=== PATIENT | male | born 1955 ===

== ENCOUNTER → 2018-05-16 | Outpatient (CLI) | payer BC ==
[~2018-05-16] VITALS: Ht 175.3 cm; Wt 102.7 kg
[~2018-05-16] MED LIST: ASPIR 8181 MG PO; LOSARTAN-HCTZ1 EAC2 PO; MATZIM LA180 MG PO; MEDROLDOSEPACK PO; MOBIC15 MG PO; SILDENAFIL20 MG PO; TRAMADOL 50 MG50 MG PO; VALACYCLOVIR500 MG PO
--- NOTE | ~2018-05-16 | HPC ---
[facility] [place] [address] [place] [address] PAIN MANAGEMENT CONSULTATION Name: FABIEN JUAREZ Room #: REG MAHENDRA CortesJeanine#: [id number] Admission: 05/16/18 Attend Phys: Nando Schmitz MD Discharge: Date of : 59 Report #: [id number] THIS REPORT FOR: //name// CC: Thai Schmitz DATE OF SERVICE: 05/16/2018 CHIEF COMPLAINT: Back pain and bilateral leg pain. HISTORY OF PRESENT ILLNESS: The patient is a 62-year-old man who has been referred to the pain clinic for evaluation of back and hip pain. He has noted pain since 01/2018. It involves his low back with pain that radiates down into his legs. Notes that the pain is worse with prolonged standing or sitting. Notes that the pain sometimes improves when he lies down. He describes it as intermittent burning and rates it as a 7/10 at this juncture. He has tried nonsteroidal anti-inflammatory medications. He also has used diclofenac and Naprosyn. He previously had a lumbar laminectomy in 2015. At this juncture, he would like to stay away from surgery. He did have some old Vicodin, which he tried in the past, but did not note any significant improvement. He has come to the pain clinic for evaluation. Denies any new bowel or bladder dysfunction. ALLERGIES: LISINOPRIL CAUSES COUGHING. MEDICATIONS: Aspirin 81 mg, losartan/hydrochlorothiazide 100/12.5, diltiazem 180 mg, meloxicam 15 mg, and Ultram 50 mg. PAST MEDICAL HISTORY: Colon adenoma in 2010, hypertension, benign prostatic hypertrophy, seasonal rhinitis, erectile dysfunction, and herpes simplex. PAST SURGICAL HISTORY: Back surgery in 2014, circumcision in 1986, fracture of the jaw in 1975, and L3-L4 right-sided laminectomy with ____ laminotomy, decompression for lumbar spinal stenosis in 05/2014. 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 REVIEW OF SYSTEMS: Generally good health, wears glasses, change in bowel habits, constipation, and frequent urination. LABORATORY DATA: No laboratory values are available at the time of our interview. PAIN CLINIC ASSESSMENT AND PQRS: 1. The patient is not being treated for rheumatoid arthritis. The patient has some osteoarthritic changes in the low back [place] [address] PAIN MANAGEMENT CONSULTATION Name: FABIEN JUAREZ Room #: REG MAHENDRA Inez#: [id number] Admission: 05/16/18 Attend Phys: Nando Schmitz MD Discharge: Date of : 59 Report #: [id number] 2. Height 5 feet 7 inches, weight 223 pounds, BMI is 39.9. 3. Vital signs: Blood pressure 152/98, pulse 71, respiratory rate 15, and room air saturation 99%. 4. Pain intensity, 12/03. 5. Fall risk. The patient has not fallen in the last 3 months. 6. Blood thinner. The patient is not on a blood thinning medication. 7. Hypertension. The patient is being treated for hypertension. 8. Opioids greater than 6 weeks. The patient is not on the opioid regimen. 9. Risk assessment tool, low for opioid use. 10. Functional assessment tool, . 11. Recreational drug use. The patient denies use of recreational drugs. 12. Tobacco: The patient is a former smoker. 13. Alcohol. The patient drinks alcoholic beverages about 3 times weekly. PHYSICAL EXAMINATION: GENERAL: The patient is a well-developed, well-nourished white male. Appears his stated age. He is alert and oriented x 3. Affect is appropriate. Speech is fluent. The patient is walking with use of a cane. HEENT: Normocephalic, atraumatic. Extraocular eye muscles intact. Sclerae nonicteric. Mucous membranes are moist. NECK: Without adenopathy or JVD. HEART: Regular rate. LUNGS: Clear to auscultation without rhonchi or rales. ABDOMEN: Nontender. Bowel sounds present. EXTREMITIES: Upper extremity muscle strength judged to be 5/5 for the major muscle groups in the upper extremity. Forward bending to about 45 degrees and the patient notes increased pain and discomfort in the low back and hip area. Left and right lateral bending, left and right lateral rotation cause some increased discomfort in the hip area. The patient has negative Jam sign. Negative straight leg raise. Palpation in the left and right hip area cause increased pain in the area of the left and right bursa. The patient is having difficulty ambulating. He has not been able to go to work for the last 4 days. ASSESSMENT: 1. Greater trochanteric bursitis involving the right buttock, left and right trochanteric areas. 2. Colon adenoma in 2010. 3. Hypertension. 4. Benign prostatic hypertrophy. 5. Seasonal rhinitis. 6. Erectile dysfunction. 7. Herpes simplex. RECOMMENDATIONS: We discussed treatment options with the patient. A model was used to indicate the area of probable pathology. Risks and benefits of injections of the bursa were discussed. At this juncture, the patient would [facility] [address] [place] [address] PAIN MANAGEMENT CONSULTATION Name: FABIEN JUAREZ Room #: REG CLMarcos Wiley#: [id number] Admission: 05/16/18 Attend Phys: Nando Schmitz MD Discharge: Date of : 59 Report #: [id number] like to try a conservative approach. We will have the patient try a Medrol Dosepak and note its efficacy. Should his pain continue to be problematic, he will return at which time we would then consider greater trochanteric injections. Risks and benefits of these were discussed with the patient. He will try the Medrol Dosepak and continue with nonsteroidal anti-inflammatory medications and ____ in conjunction with this medication and note its efficacy. We would like to thank you for letting us participate in his care. We hope he continues to improve. By: [id number] Nando Schmitz MD /nt
[2018-05-16 13:24] VITALS: BP 164/86
== END ==
LOC: PAIN 11:01
DX: I10 Essential (primary) hypertension (principal); J30.2 Other seasonal allergic rhinitis; N52.9 Male erectile dysfunction, unspecified; N40.0 Benign prostatic hyperplasia without lower urinary tract symptoms; B00.9 Herpesviral infection, unspecified; M70.61 Trochanteric bursitis, right hip

== ENCOUNTER → 2018-05-23 | Outpatient (CLI) | payer BC ==
[~2018-05-23] VITALS: Ht 175.3 cm; Wt 102.6 kg
--- NOTE | ~2018-05-23 | HPC ---
[facility] [place] [address] PAIN MANAGEMENT CONSULTATION Name: FABIEN JUAREZ Room #: REG MAHENDRA CortesJeanine#: [id number] Admission: 05/23/18 Attend Phys: Nando Schmitz MD Discharge: Date of : 59 Report #: [id number] THIS REPORT FOR: //name// CC: Thai Schmitz DATE OF SERVICE: 05/23/2018 CHIEF COMPLAINT: Here for an injection in the hip area. HISTORY: The patient is a 62-year-old gentleman who has been seen in the pain clinic because of back pain as well as hip pain. He has been having pain and discomfort since about 01/2018. He has been experiencing pain that has been radiating down into his legs. Notes that the pain is worse with prolonged standing or sitting. Notes that there is pain and discomfort, which he describes as burning in the right hip area. He has tried nonsteroidal anti-inflammatory medications. He has had a lumbar laminectomy in 2014. ALLERGIES: LISINOPRIL CAUSES COUGHING. MEDICATIONS: Aspirin 81 mg, losartan/hydrochlorothiazide 100/12.5, diltiazem 180 mg, Meloxicam 15 mg, Ultram 50 mg. PAIN CLINIC ASSESSMENT/PQRS: 1. The patient has not been treated for rheumatoid arthritis. The patient has some arthritic changes in the low back area since his surgery. 2. Height 5 feet 7 inches, weight 226 pounds, BMI is 33.4. 3. Vital signs: Blood pressure 156/97, pulse 70, respiratory rate 16, room air saturation 99%. 4. Pain intensity 01/03. 5. Fall risk. The patient has not fallen in the last 3 months. 6. Blood thinner: The patient is not on a blood thinning medication. 7. Hypertension: The patient is being treated for hypertension. 8. Opioids: The patient has not received opioid medication for the last 6 weeks. 9. Risk assessment tool, low for opioid use. 10. Functional assessment tool . 11. Recreational drug use: The patient denies use of recreational drugs. 12. Tobacco: The patient has never smoked. 13. Alcohol: The patient occasionally drinks alcoholic beverages. PHYSICAL EXAMINATION: GENERAL: The patient is a well-developed, well-nourished black male. He appears his stated age. He is alert and oriented x 3. Affect is appropriate. Speech is fluent. HEENT: Normocephalic, atraumatic. Extraocular eye muscles [place] [address] PAIN MANAGEMENT CONSULTATION Name: FABIEN JUAREZ Room #: REG [facility]#: [id number] Admission: 05/23/18 Attend Phys: Nando Schmitz MD Discharge: Date of : 59 Report #: [id number] nonicteric. EXTREMITIES: The patient continues to walk with use of a cane. Upper extremity muscle strength is judged to be 5/5 for the major muscle groups. The patient has pain and discomfort in the right greater trochanteric area. Palpation in this area does reproduce the patient's pain and discomfort. PROCEDURE NOTE: The patient's right greater trochanteric area was sterilely prepped with chlorhexidine solution and allowed to dry. It was then again prepped with another chlorhexidine solution and allowed to dry. The area of the right greater trochanteric bursa was palpated. The patient states that this did reproduce a component of his pain and discomfort. Aspiration was negative. A total of 10 mL of 0.5% bupivacaine and 80 mg Depo-Medrol was injected. The patient tolerated the procedure well. He will follow up in the future as needed. We would like to thank you for letting us participate in his care. We hope he continues to improve. By: [id number] Nando Schmitz MD /MENDOZA
[2018-05-23 10:19] VITALS: BP 156/97
--- NOTE | 2018-05-23 10:28 | NUR ---
Pain Clinic Assessment: 1. History of Osteoarthritis: History of Rheumatoid Arthritis: 2. Height: 5 ft. 9 in. 175.3 cm. Weight: 226.2 lb. oz. 102.604 kg. Patient's BMI: 33.4 3. Vital Signs: BP: 156/97 Pulse: 70 Resp: 16 Temp: 02 Sat: 99 ECG Mon: 4. Pain Intensity: 8 5. Fall Risk: Dizziness: N Needs help standing or walking: N Fallen in the last 3 months: N Fall risk comments: 6. Patient on Blood Thinner: None 7. History of Hypertension: Y 8. Opioid Therapy greater than 6 weeks: N Opiate Contract Signed: 9. Risk Assessment Tool Provided: LOW 10. Functional Assessment Tool: 11. Recreational Drug Use: Never Drug Type: Tobacco Use: Never Smoker Tobacco Type: Amount or Packs/day: How Many Years: Alcohol Use: Yes Frequency: Quant:
== END | disposition home or self-care (01) ==
LOC: PAIN 08:06
DX: M70.61 Trochanteric bursitis, right hip (principal); G89.29 Other chronic pain; Z88.8 Allergy status to other drugs, medicaments and biological substances; Z79.82 Long term (current) use of aspirin; Z79.899 Other long term (current) drug therapy; Z98.890 Other specified postprocedural states

== ENCOUNTER → 2018-07-02 | Outpatient (CLI) | payer BC ==
[~2018-07-02] VITALS: Ht 175.3 cm; Wt 102.4 kg
[~2018-07-02] MED LIST changes: +NEURONTIN 300300 M1 PO; +NORCO 5-325 TA1 EACH PO; +OXYCODONE-ACET1 EACH PO
[2018-07-02 10:28] VITALS: BP 173/90
--- NOTE | 2018-07-02 10:54 | NUR ---
Pain Clinic Assessment: 1. History of Osteoarthritis: History of Rheumatoid Arthritis: 2. Height: 5 ft. 9 in. 175.3 cm. Weight: 225.8 lb. oz. 102.422 kg. Patient's BMI: 33.3 3. Vital Signs: BP: 173/90 Pulse: 70 Resp: 18 Temp: 02 Sat: 97 ECG Mon: 4. Pain Intensity: 8 5. Fall Risk: Dizziness: N Needs help standing or walking: Y Fallen in the last 3 months: N Fall risk comments: 6. Patient on Blood Thinner: None 7. History of Hypertension: Y 8. Opioid Therapy greater than 6 weeks: N Opiate Contract Signed: 9. Risk Assessment Tool Provided: LOW 10. Functional Assessment Tool: 11. Recreational Drug Use: Never Drug Type: Tobacco Use: Never Smoker Tobacco Type: Amount or Packs/day: How Many Years: Alcohol Use: No Frequency: Quant:
--- NOTE | 2018-07-04 16:49 | HPC ---
[facility] [place] [address] [place] [address] PAIN MANAGEMENT CONSULTATION Name: FABIEN JUAREZ Room #: REG MAHENDRA CallejasJeanineKerriJeanine#: [id number] Admission: 07/02/18 Attend Phys: Nando Schmitz MD Discharge: Date of : 59 Report #: [id number] THIS REPORT FOR: //name// CC: Thia Schmitz DATE OF SERVICE: 07/02/2018 CHIEF COMPLAINT: Still having pain in my low back and pain is going down into my right leg and in the back. FOLLOWUP HISTORY: The patient is a 62-year-old gentleman who has been seen in the Pain Clinic because of pain in the low back area. He has been having problems since 01/2018. He is experiencing pain that is radiating down into his right leg. Walks with use of a cane. Rates his pain as 8/10 at this juncture. Did undergo an injection in the right greater trochanteric area. Still feels that the pain is problematic. He is not having as much pain in the trochanteric area, but is having pain that is radiating down into the posterior portion of his leg in the L5-S1 dermatomal distribution. He would like to undergo an injection in this area today. The patient is concerned that his family medical leave options are beginning to run out. MEDICATIONS: LISINOPRIL, CAUSED SOME COUGHING. MEDICATIONS: Aspirin 81 mg, losartan/hydrochlorothiazide, 100/12.5, diltiazem 180 mg, meloxicam 15 mg, Ultram 50 mg. PAIN CLINIC ASSESSMENT/PQRS: 1. The patient has not been treated for rheumatoid arthritis. The patient does have some arthritic changes in his lower portion of his back since he has had surgery in the low back area. 2. Height 5 feet 9 inches, weight 225 pounds, BMI 33.3. 3. Vital signs: Blood pressure 173/90, pulse 70, respiratory rate 18, room air saturation is 97%. 4. Pain intensity 01/03. 5. Fall risk. The patient has not fallen in the last 3 months. Does walk with the use of a cane because of weakness in the right leg. 6. Blood thinner. The patient is not on a blood thinning medication. 7. Hypertension. The patient is being treated for hypertension. 8. Opioids greater than 6 weeks. The patient is not on a regular opioid medication. 9. Risk assessment tool, low for opioid use. 10. Functional assessment tool 33/70. 11. Recreational drug use. The patient denies use of recreational drugs. 12. Tobacco: The patient has never smoked. 13. Alcohol: The patient denies use of alcoholic beverages. [address] [address] PAIN MANAGEMENT CONSULTATION Name: FABIEN JUAREZ Room #: REG MAHENDRA Wiley#: [id number] Admission: 07/02/18 Attend Phys: Nando Schmitz MD Discharge: Date of : 59 Report #: [id number] PHYSICAL EXAMINATION: GENERAL: The patient is a well-developed, well-nourished black male, appears his stated age. He is alert and oriented x 3. His affect is appropriate. Speech is fluent. HEENT: Normocephalic, atraumatic. Extraocular eye muscles intact. Mucous membranes are moist. NECK: Without adenopathy or JVD. HEART: Regular rate. S1, S2. LUNGS: Clear to auscultation. ABDOMEN: Nontender. Bowel sounds present. EXTREMITIES: Upper extremity muscle strength is judged to be 5/5 for the major muscle groups in the upper extremity. Forward bending to 45 degrees cause some increased pain and discomfort. Positive straight leg raise on the right. His pain is radiating down the right posterior L5-S1 dermatomal distribution of his leg. IMPRESSION: 1. Adenoma, 2011. 2. Hypertension. 3. Benign prostatic hypertrophy. 4. Seasonal rhinitis. 5. Erectile dysfunction. 6. Herpes simplex history. RECOMMENDATIONS: We will proceed with an epidural steroid injection today. Risks and benefits of the procedure, which could include but are not limited to infection, worsening pain, no improvement in pain, nerve damage, spinal headache were reviewed. The patient elects to proceed. A script for gabapentin 300 mg 1 p.o. t.i.d. will be started to use. The patient is able to tolerate it. Oxycodone 5/325 one p.o. t.i.d. have been written. PROCEDURE NOTE: The patient was placed in the prone position. Fluoroscopy was used to identify the L5-S1 dermatomal distribution using a right paracentral approach at the L4-L5. A 17-gauge Tuohy with loss of resistance technique was used to gain access. A pillow had been placed under the patient's abdomen to bolster and improved position. Fluoroscopy using anterior, posterior as well as lateral viewing were implemented. The patient's back had been cleansed using a Betadine solution, which was allowed to dry. The patient tolerated the procedure well. A total of 8 seconds fluoroscopy time was used. The patient remained in the Pain Clinic for an appropriate amount of time. He will follow up in the future as needed. Pain decreased from 8 to 4 at the time of discharge. He will follow up or give us a call if he has any concerns. [address] [address] PAIN MANAGEMENT CONSULTATION Name: FABIEN JUAREZ Raj Room #: [facility].#: [id number] Admission: 07/02/18 Attend Phys: Nando Schmitz MD Discharge: Date of : 59 Report #: [id number] We would like to thank you for letting us participate in his care. <ELECTRONICALLY SIGNED> By: Nando Schmitz MD 07/04/18 [id number] Nando Schmitz MD /nt
== END | disposition home or self-care (01) ==
LOC: PAIN 07:10
DX: M54.5 Low back pain (principal); N40.0 Benign prostatic hyperplasia without lower urinary tract symptoms; J31.0 Chronic rhinitis; N52.9 Male erectile dysfunction, unspecified; B00.89 Other herpesviral infection; Z79.899 Other long term (current) drug therapy; Z79.82 Long term (current) use of aspirin

== ENCOUNTER → 2018-07-25 | Outpatient (CLI) | payer BC ==
[~2018-07-25] VITALS: Ht 175.3 cm; Wt 98.4 kg
[~2018-07-25] MED LIST changes: +GABAPENTIN100 MG PO
--- NOTE | ~2018-07-25 | HPC ---
[facility] [place] [address] [place] [address] PAIN MANAGEMENT CONSULTATION Name: FABIEN JUAREZ Room #: REG MAHENDRA CallejasJeanineKerriJeanine#: [id number] Admission: 07/25/18 ������������������ Attend Phys: Nando Schmitz MD Discharge: ������������������ Date of : 59 Report #: [id number] THIS REPORT FOR: //name// CC: Thai Schmitz DATE OF SERVICE: 07/25/2018 CHIEF COMPLAINT: Pain in the low back down the right hip, right leg and foot with cramping in the calf. FOLLOWUP HISTORY: The patient is a 62-year-old gentleman who has been seen in the Pain Clinic because of pain and discomfort. He has been having this problem since 01/2018. He has had pain and has been radiating down to his right leg and has been walking and ambulating with a cane. He has undergone epidural steroid injections. He has gleaned some benefit from this. Rates his pain today as a 5/10. At this juncture, he would like to continue with Percocet medication, Mobic and consider return to work. He is still having some pain and discomfort down the L5-S1 dermatomal distribution on the right. Notes that the pain can be problematic with prolonged standing, sitting and improves when he is lying on his side. ALLERGIES: LISINOPRIL CAUSES COUGHING. CURRENT MEDICATIONS: Aspirin 81 mg, losartan/hydrochlorothiazide 100/12.5, diltiazem 180 mg, Meloxicam 15 mg, Ultram 50 mg. PAIN CLINIC ASSESSMENT/PQRS: 1. The patient is not being treated for rheumatoid arthritis. He does have some arthritic changes in his low back and has had back surgery. 2. Height 5 feet 9 inches, weight 217 pounds, BMI is 32.0. 3. Vital signs: Blood pressure 162/104, pulse 70, respiratory rate 16, room air saturation 98%. 4. Pain intensity, 5/10. 5. Fall risk. The patient has not fallen in the last 3 months. 6. Blood thinner. The patient is not on a blood thinning medication. 7. Hypertension. The patient is being treated for hypertension. 8. Opioid greater than 6 weeks. The patient receives medications through the Pain Clinic. 9. Risk assessment tool, low for opioid use. 10. Functional assessment, . 11. Recreational drug use. The patient denies use of recreational drugs. 12. Tobacco: The patient denies use of tobacco. PHYSICAL EXAMINATION: GENERAL: The patient is a well-developed, well-nourished black male, [place] [address] PAIN MANAGEMENT CONSULTATION Name: FABIEN JUAREZ Raj Room #: REG [facility]#: [id number] Admission: 07/25/18 ������������������ Attend Phys: Nando Schmitz MD Discharge: ������������������ Date of : 59 Report #: [id number] his stated age. He is alert and oriented x 3. His affect is appropriate. Speech is fluent. HEENT: Normocephalic, atraumatic. Extraocular eye muscles intact. Sclerae nonicteric. Mucous membranes are moist. NECK: Without adenopathy or JVD. HEART: Regular rate. S1, S2. LUNGS: Clear to auscultation without rhonchi or rales. ABDOMEN: Nontender. Bowel sounds present. EXTREMITIES: Upper extremity muscle strength judged to be 5/5 for the major muscle groups in the upper extremity. Lower extremity muscle strength is judged to be 5-/5 for the lower extremity with pain and discomfort remaining down in the right L5-S1 dermatomal distribution. IMPRESSION: 1. Adenoma, 2010. 2. Hypertension. 3. Lumbar radiculopathy, L5-S1 dermatomal distribution. 4. Benign prostatic hypertrophy. 5. Seasonal rhinitis. 6. Erectile dysfunction. 7. History of herpes simplex. RECOMMENDATIONS: We discussed treatment options with the patient. At this juncture, we will continue with his Percocet 5/325 one p.o. t.i.d. The patient has also been given a Medrol Dosepak should his pain become more problematic. He will continue with Mobic 15 mg 1 p.o. daily. I will monitor this medication. Should he start to have GI problems, he will stop taking it. He will call and return to the Pain Clinic p.r.n. as needed. We would like to thank you for letting us participate in his care. We hope he continues to improve. ��������������������������������������������� ���������������������������������������� By: ��������������������������������������������� [id number] Nando Schmitz MD /nt
[2018-07-25 11:11] VITALS: BP 162/104
--- NOTE | 2018-07-25 11:14 | NUR ---
Pain Clinic Assessment: 1. History of Osteoarthritis: Not Applicable History of Rheumatoid Arthritis: Not Applicable 2. Height: 5 ft. 9 in. 175.3 cm. Weight: 217.0 lb. oz. 98.431 kg. Patient's BMI: 32.0 3. Vital Signs: BP: 162/104 Pulse: 70 Resp: 16 Temp: 02 Sat: 98 ECG Mon: 4. Pain Intensity: 5 5. Fall Risk: Dizziness: N Needs help standing or walking: N Fallen in the last 3 months: N Fall risk comments: 6. Patient on Blood Thinner: None 7. History of Hypertension: Y 8. Opioid Therapy greater than 6 weeks: N Opiate Contract Signed: 9. Risk Assessment Tool Provided: LOW 10. Functional Assessment Tool: 11. Recreational Drug Use: Never Drug Type: Tobacco Use: Never Smoker Tobacco Type: Amount or Packs/day: How Many Years: Alcohol Use: No Frequency: Quant:
== END ==
LOC: PAIN 06:53
DX: M54.5 Low back pain (principal); M79.604 Pain in right leg; M25.551 Pain in right hip; Z79.899 Other long term (current) drug therapy

== ENCOUNTER → 2018-08-22 | Outpatient (CLI) | payer BC ==
[~2018-08-22] MED LIST changes: +OXYCODONE-APAP1 EAC6 PO
[2018-08-22 08:39] VITALS: BP 156/103
--- NOTE | 2018-08-22 08:45 | NUR ---
Pain Clinic Assessment: 1. History of Osteoarthritis: Not Applicable History of Rheumatoid Arthritis: Not Applicable 2. Height: ft. in. cm. Weight: lb. oz. kg. Patient's BMI: 3. Vital Signs: BP: 156/103 Pulse: 96 Resp: 16 Temp: 02 Sat: 96 ECG Mon: 4. Pain Intensity: 7 5. Fall Risk: Dizziness: N Needs help standing or walking: Y Fallen in the last 3 months: N Fall risk comments: 6. Patient on Blood Thinner: None 7. History of Hypertension: Y 8. Opioid Therapy greater than 6 weeks: Y Opiate Contract Signed: 9. Risk Assessment Tool Provided: LOW 10. Functional Assessment Tool: 11. Recreational Drug Use: Never Drug Type: Tobacco Use: Never Smoker Tobacco Type: Amount or Packs/day: How Many Years: Alcohol Use: No Frequency: Quant:
--- NOTE | 2018-08-26 12:39 | HPC ---
[facility] [place] [address] PAIN MANAGEMENT CONSULTATION Name: FABIEN JUAREZ Room #: REG [facility] Inez#: [id number] Admission: 08/22/18 ������������������ Attend Phys: Nando Schmitz MD Discharge: ������������������ Date of : 59 Report #: [id number] THIS REPORT FOR: //name// CC: Thai Schmitz CHIEF COMPLAINT: The pain was helped after the first injection, but has now started to return. HISTORY: The patient is a 62-year-old gentleman who has been seen in the pain clinic because of lumbar radiculopathy. He has undergone pain injections. He underwent an epidural steroid injection on 07/02/2018. He noticed an improvement in his pain. He has been experiencing pain that is radiating down the right hip, buttocks, posterior portion of his leg down into the calf with some pain into his foot. He has noticed that the pain has again increased. He had been walking with a cane initially. After the first injection he was able to ambulate without the cane. Now, he is using a cane again because of the worsening of his pain. He feels that the Percocet medications were helpful. Pain is still more problematic at this juncture in the 5 mg tablets 3 times a day is not as effective. He would like to proceed with another epidural steroid injection. He is aware that he may at some point need to undergo surgery. He would like to postpone this as long as possible. ALLERGIES: Lisinopril caused coughing. MEDICATIONS: Aspirin 81 mg, losartan/hydrochlorothiazide 100/12.5, diltiazem 180 mg, Meloxicam 15 mg, Ultram 50 mg, oxycodone 5/325 one p.o. t.i.d. PAIN CLINIC ASSESSMENT AND PQRS: 1. The patient is not being treated for rheumatoid arthritis. Does have some arthritic changes of his low back area and has had back surgery in the past. 2. Height 5 feet 9 inches, weight 217 pounds, BMI is 32. 3. Vital signs: Blood pressure 156/103, heart rate 96, respiratory rate 16, room air saturation 96%. 4. Pain intensity 12/03. 5. Fall risk. The patient has not fallen in the last 3 months. 6. Blood thinner. The patient is not on a blood thinning medication. 7. Hypertension. The patient has been treated for hypertension, but continues to have elevated blood pressures. 8. Opioid greater than 6 weeks. The patient received some opioid medication through the pain clinic. 9. Risk assessment tool, low for opioid use. 10. Recreational drug use. The patient denies use of recreational drugs. 11. Tobacco: The patient has never smoked. 12. Alcohol: The patient denies use of alcoholic beverages. PHYSICAL EXAMINATION: [facility] [address] [place] [address] PAIN MANAGEMENT CONSULTATION Name: FABIEN JUAREZ Room #: REG [facility]#: [id number] Admission: 08/22/18 ������������������ Attend Phys: Nando Schmitz MD Discharge: ������������������ Date of : 59 Report #: [id number] GENERAL: The patient is a well-developed, well-nourished black male. Appears his stated age. He is alert and oriented x 3. His affect is appropriate. Speech is fluent. HEENT: Normocephalic, atraumatic. Extraocular eye muscles intact. Sclerae nonicteric. Mucous membranes are moist. HEART: Regular rate. ABDOMEN: Nontender. LUNGS: Clear to auscultation. EXTREMITIES: Upper extremity muscle strength is judged to be 5/5 for the major muscle groups. The patient is without significant scoliosis, kyphosis or lordosis. Walks with an antalgic gait, uses a cane. Complains of pain and discomfort in the right low back area with pain radiating down in the L5-S1 dermatomal distribution. Straight leg raising is positive. The patient has some decreased sensation to pinprick, cold down the L5-S1 area. IMPRESSION: 1. Lumbar radiculopathy, L5-S1 dermatomal distribution. 2. Hypertension. 3. Adenoma 2011. 4. Benign prostatic hypertrophy. 5. Seasonal rhinitis. 6. Erectile dysfunction. 7. History of herpes simplex. RECOMMENDATIONS: We discussed treatment options with the patient. At this juncture, I think it would be reasonable to proceed with another epidural steroid injection. The patient feels that the pain has returned. He is having pain that is radiating down into his right leg. He is walking with use of a cane. Unable to perform his duties at work as to the level he would like to secondary to the pain. We have discussed the risks and benefits of opioid use. I explained that opioid medications can be helpful initially. They could be less helpful as time goes on, secondary to development of tolerance as well as one can develop an addiction to these medications. He would like to try an additional treatment of the opioid medication to help quell his pain. He would like to proceed with epidural steroid injection. Risks and benefits of the procedure, which could include but are not limited to infection, worsening pain, no improvement in pain, bleeding, paralysis, spinal headache were discussed. The patient elects to proceed. PROCEDURE NOTE: The patient was taken to the procedure area. He was assisted in getting on the examination table. His back was sterilely prepped with a Betadine solution. The L5-S1 area was then infiltrated with 0.25% bupivacaine using a 25-gauge needle. At the L5-S1 area on the right using a right paramedian approach a 17-gauge Tuohy with loss of resistance technique was used to gain access to the epidural space. There was no CSF, heme or paresthesia. Total of 80 mg Depo-Medrol, 40 mg triamcinolone and 2 mL of 0.25% bupivacaine [facility] [address] [place] [address] PAIN MANAGEMENT CONSULTATION Name: FABIEN JUAREZ Room #: [facility]#: [id number] Admission: 08/22/18 ������������������ Attend Phys: Nando Schmitz MD Discharge: ������������������ Date of : 59 Report #: [id number] was injected. The patient tolerated the procedure well. A total of 7 seconds fluoroscopy time was used. The patient's pain decreased to 4 at the time of discharge. A script for his medications of oxycodone 7.5 mg 1 p.o. t.i.d. have been written. He will call us if he has any concerns. We would like to thank you for letting us participate in his care. We hope he continues to improve. ��������������������������������������������� <ELECTRONICALLY SIGNED> ���������������������������������������� By: Nando Schmitz MD ��������������������������������������������� 08/26/18 1239 [id number] 28 Nando Schmitz MD /nt
== END | disposition home or self-care (01) ==
LOC: PAIN 06:45
DX: M54.16 Radiculopathy, lumbar region (principal); I10 Essential (primary) hypertension; N40.0 Benign prostatic hyperplasia without lower urinary tract symptoms; J31.0 Chronic rhinitis; Z88.8 Allergy status to other drugs, medicaments and biological substances; Z79.82 Long term (current) use of aspirin; Z79.899 Other long term (current) drug therapy

== ENCOUNTER → 2018-09-19 | Outpatient (CLI) | payer BC ==
[~2018-09-19] VITALS: Ht 175.3 cm; Wt 96.2 kg
[~2018-09-19] MED LIST changes: +OXYCODONE HCL10 MG PO
[2018-09-19 10:11] VITALS: BP 160/96
--- NOTE | 2018-09-19 10:12 | NUR ---
Pain Clinic Assessment: 1. History of Osteoarthritis: Not Applicable History of Rheumatoid Arthritis: Not Applicable 2. Height: 5 ft. 9 in. 175.3 cm. Weight: 212.0 lb. oz. 96.163 kg. Patient's BMI: 31.3 3. Vital Signs: BP: 160/96 Pulse: 81 Resp: 18 Temp: 02 Sat: 96 ECG Mon: 4. Pain Intensity: 7 5. Fall Risk: Dizziness: N Needs help standing or walking: N Fallen in the last 3 months: N Fall risk comments: 6. Patient on Blood Thinner: None 7. History of Hypertension: Y 8. Opioid Therapy greater than 6 weeks: Y Opiate Contract Signed: 9. Risk Assessment Tool Provided: LOW 10. Functional Assessment Tool: 11. Recreational Drug Use: Never Drug Type: Tobacco Use: Never Smoker Tobacco Type: Amount or Packs/day: How Many Years: Alcohol Use: No Frequency: Quant:
--- NOTE | 2018-09-22 08:34 | HPC ---
[address] [address] PAIN MANAGEMENT CONSULTATION Name: FABIEN JUAREZ Room #: REG [facility] Inez#: [id number] Admission: 09/19/18 ������������������ Attend Phys: Rosy Jim Discharge: ������������������ Date of : 59 Report #: [id number] THIS REPORT FOR: //name// CC: Rosy Sutherlandlas Mojica DATE OF SERVICE: 09/19/2018 CHIEF COMPLAINT: Low back pain with right hip pain that radiates into his foot. HISTORY OF PRESENT ILLNESS: This is a very pleasant 63-year-old gentleman who returns to the pain clinic today for refill of his medications for his ongoing low back pain and right leg pain. The patient tells me that the injection that Dr. Schmitz gave him in July of his lumbar epidural steroid injection did not relieve his pain and he is scheduled for surgery with Dr. Avelar on 09/30/2018. The patient is here for medication refill prior to his surgery. He did tell me that Dr. Avelar does not want him taking any anti-inflammatories or Tylenol or aspirin products prior to his surgery. He is unsure how long that he is here for medication refills and a change in his pain medication, which contains Tylenol, but tells me that his pain score is 7/10 today, mostly a sharp numb feeling that radiates from his lower back down the outer aspect of his right leg into his foot. He is using a cane today for balance. His pain is worse when he is up standing, walking or getting up from a sitting position. The medications or sitting down is very helpful. He denies any problems with daytime sleepiness or constipation. ALLERGIES: LISINOPRIL. MEDICATIONS: Oxycodone 7.5/325 p.r.n., meloxicam 15 mg daily, gabapentin 100 mg t.i.d., losartan/hydrochlorothiazide daily, diltiazem 180 mg daily. PQRS: 1. The patient is not being treated for rheumatoid arthritis. He does have some arthritic changes in his lower back. Height is 5 feet 9 inches, weight is 212, BMI is 31. 2. Vital signs: Blood pressure 160/96, pulse is 81, respirations 18, oxygen sat is 96%. 3. Pain score is 7/10. Denies dizziness, does not need help walking or standing. Has not fallen in the last 3 months. 4. The patient is not on any blood thinners, but does take medicine for hypertension. 5. Opioid therapy is greater than 6 weeks, not signed an opioid contract at this time. He wishes to hopefully get off this medicine. 6. Risk assessment tool is low. Functional assessment is 33/70. 7. Recreational drug use, he denies. He is not a smoker and he does not drink alcohol. [address] [address] PAIN MANAGEMENT CONSULTATION Name: FABIEN JUAREZ [id number] Admission: 09/19/18 ������������������ Attend Phys: Rosy Jim Discharge: ������������������ Date of : 59 Report #: [id number] We did check the prescription monitoring system. The patient is filling appropriately from Dr. Schmitz and he tells me he does safeguard his medications. PHYSICAL EXAMINATION: GENERAL: This is a well-developed, well-nourished 63-year-old gentleman who appears his stated age. He is alert and orientated. His affect is appropriate and he places his pain score today at 7/10. HEENT: Normocephalic, atraumatic. Extraocular eye muscles are intact. Mucous membranes are moist. EXTREMITIES: Upper extremity strength judged to be 5/5 for major muscle groups in his upper extremities. His lower extremity strength judged to be 5/5 for his lower extremities. He does complain of some pain radiating from his right hip following the L5-S1 dermatone to outer aspect of his foot with numbness and tingling. IMPRESSION: 1. Adenoma in 2010. 2. Hypertension. 3. Lumbar radiculopathy following an L5-S1 dermatomal distribution. 4. Benign prostatic hypertrophy. We reviewed the fact that opiate medications are being used to provide analgesia adequate to support activities of daily living, not attempting to achieve a specific pain score on the 0-10 Visual Analog Scale. The current opiate medications are providing sufficient analgesia to allow the patient to participate in activities of daily living. The patient is not exhibiting any aberrant behavior suggestive of drug diversion. The patient is not having any adverse reactions to medications. The patient is not suffering from daytime somnolence or mental acuity changes. The patient is managing opiate-induced constipation with appropriate zevg-rwh-qziozcl agents and dietary considerations. The patient was counseled on concern for caution with operating a motor vehicle while using opiate medications. A physical exam was performed and the patient's functional status was evaluated. All patients with back pain were advised against the bed rest greater than 4 days and were advised to return to normal activities. Pain score assessment was noted and the treatment plan was reviewed with the patient. All current medications, both prescribed and OTC were reviewed and reconciled on the electronic medical record. Tobacco screening was accomplished and smoking cessation was advised when indicated. BMI was noted and diet/exercise modification was recommended for all patients following outside normal parameters. I reviewed with the patient today their responsibilities to safeguard prescription medications, reviewed their responsibility to utilize medications only as prescribed by the physician. They are to seek and receive pain [facility] [address] [place] [address] PAIN MANAGEMENT CONSULTATION Name: LARRYFABIEN D [id number] Admission: 09/19/18 ������������������ Attend Phys: Rosy Jim Discharge: ������������������ Date of : 59 Report #: [id number] medications only from 1 physician group ( [facility]). They are to use 1 pharmacy and keep the clinic informed if they change pharmacies. Their responsibilities include making followup visits in a timely fashion and to avoid abrupt discontinuation of medication usage. Their responsibilities further include bringing their medications (bottles from the pharmacy with residual pills) to the visit for possible confirmation of pill counts and the patient understands it is their responsibility to submit to random drug screens to ensure both that the medications prescribed are present, and that no other controlled substances are present. All prescriptions provided today were generated electronically. PLAN: 1. We discussed treatment options with the patient today. The patient tells me that Dr. Avelar does not want him on any anti-inflammatories or aspirin like products prior to his surgery. I encouraged him to stop his meloxicam and to not take any Tylenol or ibuprofen or Aleve type products. His current pain pill has Tylenol in it as well, so we will change that medication today. 2. After discussion with Dr. Charles Schmitz, he did see the patient as well. It was determined to rotate this patient to OxyIR 10 mg allowing the patient to take #3 tablets a day, #90, prescription was given. The patient was informed that this does not have any Tylenol in this medication. He is to take this up until close to surgery 3 times a day if he needs and 3-4 days prior to surgery, he is to decrease it to 2 times a day if he is able to help with better pain control postoperatively. The patient verbalizes understanding. 3. The patient tells me Dr. Avelar will probably give him prescriptions for pain medications postoperatively. I informed him that he should call our office to let us know what he was prescribed. He is not to take our pain medicine and Dr. Avelar's at the same time. After he has finished with Dr. Avelar's medicine, he can resume ours and slowly taper off. If he still is requiring pain medicines, he is to make appointment and we will discuss followup care. 4. The patient seen with Dr. Schmitz who collaborated care today. The patient will call as needed for an appointment. ��������������������������������������������� <ELECTRONICALLY SIGNED> ���������������������������������������� By: Rosy Jim ��������������������������������������������� 09/22/18 0834 [id number] Rosy Jim /luz
== END ==
LOC: PAIN 06:41
DX: M54.16 Radiculopathy, lumbar region (principal); I10 Essential (primary) hypertension; N40.0 Benign prostatic hyperplasia without lower urinary tract symptoms; Z88.8 Allergy status to other drugs, medicaments and biological substances; Z79.899 Other long term (current) drug therapy; Z79.891 Long term (current) use of opiate analgesic